=== PATIENT | female | born 1970 | race Caucasian/White ===

== ENCOUNTER 2021-07-26 13:17 | Emergency (ER) | payer MEDICAID ==
[~2021-07-26] VITALS: Ht 154.9 cm; Wt 54.9 kg
--- NOTE | 2021-07-26 13:40 | NUR ---
Dr Headley at the bedside for MSE.
--- NOTE | 2021-07-26 14:00 | NUR ---
Pt out of ER for CT.
[2021-07-26 14:19] LABS: MEAN CORPUSCULAR HEMOGLOBIN 30.4 uug (24.7-32.8); PLATELET COUNT (AUTO) 310 K/uL (179-408)
--- NOTE | 2021-07-26 14:22 | NUR ---
Pt back from Ct, resting in bed, speaking on the phone.
[2021-07-26 14:29] LABS: CREATININE 0.6 mg/dL (0.6-1.3); POTASSIUM 3.8 mmol/L (3.5-5.1)
[2021-07-26 14:35] LABS: BILIRUBIN,DIRECT 0.1 mg/dL (0.0-0.2); BILIRUBIN,TOTAL 0.8 mg/dL (0.2-1.0); TOTAL PROTEIN, SERUM 7.7 g/dL (6.4-8.2)
[2021-07-26] MEDS: TRAMADOL HCL 50 MG TABLET PO ONE (14:58)
[2021-07-26] MEDS ORDERED: TRAMADOL HCL 50 MG TABLET ONE (15:04)
[2021-07-26] MEDS ORDERED: ONDANSETRON ODT 4 MG TAB.RAPDIS ONE (15:04)
[2021-07-26] MEDS ORDERED: TRAM50TA2 PO (15:30)
[2021-07-26] MEDS: ONDANSETRON ODT 4 MG TAB.RAPDIS SL ONE (15:57)
[2021-07-26] MEDS: ACETAMINOPHEN ES 500 MG TABLET PO ONE (15:57)
[2021-07-26] MEDS ORDERED: ACETAMINOPHEN ES 500 MG TABLET ONE (16:04)
--- NOTE | 2021-07-26 16:14 | NUR ---
Patient discharged to home in stable condition. Written and verbal after care instructions given. Patient verbalizes understanding of instructions. Stressed follow up or return to ER for worsening s/s.
[2021-07-26 16:15] VITALS: BP 130/76
== END 2021-07-26 16:16 | disposition home or self-care (01) ==
LOC: ER 13:17
DX: R51.9 Headache, unspecified (principal)
CPT/HCPCS: 36415; 70450; 85025; A4663; A9150; Q0162